=== PATIENT | female | born 1975 | race African-American/Black ===

== ENCOUNTER 2020-01-01 10:10 | Emergency (ER) | payer OTHER ==
[~2020-01-01] VITALS: Ht 157.5 cm; Wt 59.9 kg
[2020-01-01] MEDS ORDERED: ZYRTEC10 M3 PO (13:59)
== END 2020-01-01 14:05 | disposition home or self-care (01) ==
LOC: ER 10:10
DX: N39.0 Urinary tract infection, site not specified (principal); Z03.818 Encounter for observation for suspected exposure to other biological agents ruled out

== ENCOUNTER 2020-02-08 07:21 | Outpatient (CLI) | payer OTHER ==
[~2020-02-08 07:21] MED LIST: ZYRTEC10 M3 PO
== END 2020-02-08 07:23 | disposition home or self-care (01) ==
LOC: SONOGRAMA 07:21
PROVIDERS: ATTEND Internal Medicine Gastroenterology
DX: R10.84 Generalized abdominal pain (principal)

== ENCOUNTER 2020-05-14 15:31 | Outpatient (CLI) | payer OTHER | END 2020-05-14 15:48 | disposition home or self-care (01) | LOC: LAB 15:31 | PROVIDERS: ATTEND Urology | DX: R31.0 Gross hematuria (principal) ==

== ENCOUNTER 2020-05-17 07:52 | Outpatient (CLI) | payer OTHER | END 2020-05-17 08:25 | disposition home or self-care (01) | LOC: TOM 07:52 | PROVIDERS: ATTEND Urology | DX: N83.291 Other ovarian cyst, right side (principal); K59.09 Other constipation; R31.1 Benign essential microscopic hematuria ==

== ENCOUNTER 2022-05-02 12:23 | Emergency (ER) | payer OTHER ==
[~2022-05-02] VITALS: Ht 157.5 cm; Wt 71.7 kg
[2022-05-02] MEDS ORDERED: LEVOTHYROXINE25 MCG PO (13:14)
[2022-05-02] MEDS ORDERED: FLUCONAZOLE150 MG PO (16:56)
[2022-05-02] MEDS ORDERED: PYRIDIUM100 MG PO (16:56)
== END 2022-05-02 17:02 | disposition home or self-care (01) ==
LOC: ER 12:23
DX: N39.0 Urinary tract infection, site not specified (principal); E03.9 Hypothyroidism, unspecified